=== PATIENT | male | born 1980 | race Caucasian/White ===

== ENCOUNTER 2023-12-30 15:56 | Emergency (ER) | payer MEDICAID ==
[~2023-12-30] VITALS: Ht 170.2 cm; Wt 95.0 kg
[~2023-12-30 15:56] MED LIST: FOLI-43 PO; MULT-1116 PO; THIA100T13 PO; UNKNOWN MEDS
[2023-12-30 16:16] VITALS: BP 141/92; PULSE 101; RESP 16; O2SAT 96
[2023-12-30 17:51] LABS: EOSINOPHILS % 0.5 % (0.0-5.0); HEMOGLOBIN. 12.6 g/dL (14.0-18.0); LYMPHOCYTES % 49.4 % (20.0-50.0); MEAN CORPUSCULAR HEMOGLOBIN 33.1 pg (28.0-32.0); MEAN CORPUSCULAR VOLUME 97.3 fL (80.0-94.0); MONOCYTES % 8.5 % (2.0-8.0); NEUTROPHILS % 40.6 % (40.0-76.0); PLATELET 189 x1000/uL (130-400); RED BLOOD CELL COUNT 3.81 mill/uL (4.7-6.1); RED CELL DISTRIBUTION WIDTH 13.8 % (11.6-14.6); WHITE BLOOD COUNT 5.1 x1000/uL (4.5-11.0)
[2023-12-30 17:58] LABS: CARBON DIOXIDE 23 mEq/L (21-32); CHLORIDE 108 mEq/L (98-107); POTASSIUM 3.5 mEq/L (3.5-5.1); SODIUM 143 mEq/L (136-145)
[2023-12-30 17:59] LABS: CALCIUM 8.9 mg/dL (8.7-10.4)
[2023-12-30 18:00] LABS: PROTHROMBIN TIME 11.2 sec (9.6-11.0)
[2023-12-30 18:04] LABS: CREATININE 0.9 mg/dL (0.6-1.3); ETHANOL BLOOD 300 mg/dL (<10); GLUCOSE 107 mg/dL (70-105); UREA NITROGEN BLOOD 7 mg/dL (9-23)
[2023-12-30 18:06] LABS: ALANINE AMINOTRANSFERASE 59 IU/L (10-49); ALBUMIN 4.7 g/dL (3.2-4.8); ASPARTATE AMINOTRANSFERASE 89 IU/L (<34); BILIRUBIN TOTAL 0.3 mg/dL (0.1-1.0); PROTEIN TOTAL 7.7 g/dL (6.0-8.3)
[2023-12-30 18:07] LABS: BILIRUBIN DIRECT < 0.1 mg/dL (<=3.0)
[2023-12-30] MEDS ORDERED: HYDROCODONE/ACETAMINOPHEN 5/325MG TABLET PO ONE (18:15)
[2023-12-30] MEDS ORDERED: MAGNESIUM/ALUMINUM HYDROXIDE/SIMETHICONE 30ML UDC PO ONE (18:15)
[2023-12-30] MEDS ORDERED: ONDANSETRON 4MG ODT PO ONE (18:15)
[2023-12-30] MEDS ORDERED: KETOROLAC 30MG/ML VIAL IM ONE (18:15)
== END 2023-12-30 23:04 | disposition home or self-care (01) ==
LOC: ER 15:56
DX: R10.84 Generalized abdominal pain (principal); R11.2 Nausea with vomiting, unspecified
CPT/HCPCS: 36415; 74176; 80048; 80076; 80320; 85025; 93005; 99284; G0480

== ENCOUNTER 2024-05-26 18:19 | Emergency (ER) | payer MEDICAID ==
[~2024-05-26] VITALS: Ht 172.7 cm; Wt 90.0 kg
[2024-05-26 18:21] VITALS: BP 125/67; PULSE 85; RESP 16; TEMP 36.8; O2SAT 100
[2024-05-26] MEDS ORDERED: DICYCLOMINE 10 MG/5 ML ORAL SYR PO STA (18:52)
[2024-05-26] MEDS: MAGNESIUM/ALUMINUM HYDROXIDE/SIMETHICONE 30ML UDC PO STA (19:27)
[2024-05-26] MEDS: ONDANSETRON 4MG ODT PO STA (19:27)
[2024-05-26] MEDS: DICYCLOMINE HCL 10MG CAPSULE PO NR (19:27)
[2024-05-26 19:33] LABS: BASOPHILS % 0.3 % (0.0-2.0); EOSINOPHILS % 2.3 % (0.0-5.0); HEMOGLOBIN. 14.1 g/dL (14.0-18.0); LYMPHOCYTES % 57.9 % (20.0-50.0); MEAN CORPUSCULAR HEMOGLOBIN 31.7 pg (28.0-32.0); MEAN CORPUSCULAR HGB CONC 33.6 g/dL (31.0-37.0); MEAN CORPUSCULAR VOLUME 94.4 fL (80.0-94.0); MONOCYTES % 4.8 % (2.0-8.0); NEUTROPHILS % 34.7 % (40.0-76.0); PLATELET 259 x1000/uL (130-400); RED BLOOD CELL COUNT 4.44 mill/uL (4.7-6.1); RED CELL DISTRIBUTION WIDTH 14.2 % (11.6-14.6)
[2024-05-26 19:40] LABS: CARBON DIOXIDE 24 mEq/L (21-32); CHLORIDE 112 mEq/L (98-107); SODIUM 147 mEq/L (136-145)
[2024-05-26 19:41] LABS: CALCIUM 8.8 mg/dL (8.7-10.4)
[2024-05-26 19:42] LABS: PROTHROMBIN TIME 11.4 sec (9.6-11.0)
[2024-05-26 19:45] LABS: CREATININE 0.8 mg/dL (0.6-1.3)
[2024-05-26 19:46] LABS: ETHANOL BLOOD 300 mg/dL (<10); GLUCOSE 107 mg/dL (70-105); UREA NITROGEN BLOOD 10 mg/dL (9-23)
[2024-05-26 19:47] LABS: ALANINE AMINOTRANSFERASE 66 IU/L (10-49); ASPARTATE AMINOTRANSFERASE 60 IU/L (<34)
[2024-05-26 19:48] LABS: BILIRUBIN TOTAL 0.2 mg/dL (0.1-1.0); PROTEIN TOTAL 7.8 g/dL (6.0-8.3)
[2024-05-26 19:49] LABS: BILIRUBIN DIRECT < 0.1 mg/dL (<=3.0)
[2024-05-26] MEDS ORDERED: CEPH500C2 MT (22:32)
== END 2024-05-26 23:50 | disposition home or self-care (01) ==
LOC: ER 18:19
DX: F10.229 Alcohol dependence with intoxication, unspecified (principal); L03.115 Cellulitis of right lower limb; E87.8 Other disorders of electrolyte and fluid balance, not elsewhere classified; Z55.6 Problems related to health literacy; Y90.8 Blood alcohol level of 240 mg/100 ml or more
CPT/HCPCS: 80076; 80048; 80320; 83690; 85025; 85610; 36415; 73610; 99284; Q0162; G0480